=== PATIENT | female | born 1990 | race Caucasian/White ===

== ENCOUNTER 2020-12-12 11:08 | Inpatient (IN) ==
[2020-12-12] MEDS ORDERED: Buffered Lidocaine 1% SYRIN 1 ml INTRADERM ONE (11:23)
[2020-12-12] MEDS ORDERED: Lactated Ringers 1000 ml BAG 1,000 ML IV ONE (11:23)
[2020-12-12] MEDS ORDERED: Lactated Ringers 1000 ml BAG 1,000 ML IV SCH ×2 (12:00→23:00)
[2020-12-12 13:16] LABS: Urine Benzodiazepine Screen None Detected (None Detect); Urine Cannabinoids Screen None Detected (None Detect); Urine Opiates Screen None Detected (None Detect)
[2020-12-12] MEDS ORDERED: Witch Hazel PAD JAR TOPICAL PRN (22:23)
[2020-12-12] MEDS ORDERED: Dibucaine 1% OINT 28.35 GM TUBE PR PRN (22:23)
[2020-12-12] MEDS ORDERED: Oxytocin 10 UNITS/ML 1 ML VIAL IM ONE (22:23)
[2020-12-12] MEDS ORDERED: Lidocaine 1% VIAL 10 MG/ML VIAL ONE (22:31)
[2020-12-13] MEDS ORDERED: Lidocaine 1% VIAL 10 MG/ML VIAL ONE (04:44)
[2020-12-13 08:31] LABS: ABS Monocytes 1.4 10^3/ul (0-0.8); ABS Neutrophils 14.2 10^3/ul (1.5-7.7); Hematocrit 37 % (35-47); Hemoglobin 12.5 g/dL (12.0-16.0); Lymphocyte % 11.4 %; Mean Corpuscular HGB Conc 34 g/dL (31-36); Mean Corpuscular Hemoglobin 32 pg (27-31); Mean Corpuscular Volume 93 fL (80-97); Mean Platelet Volume 8.3 fL (7.4-10.4); Platelet Count 185 10^3/uL (150-450); Red Blood Count 3.94 10^6 /uL (3.70-4.87); Red Cell Distribution Width 14 % (10-15); White Blood Count 17.7 10^3/uL (3.5-10.8)
[2020-12-13 20:08] VITALS: BP 107/60
== END 2020-12-13 22:45 | disposition home or self-care (01) | DRG 807 ==
LOC: MCHOBOUT 11:08 → MCHOB 11:52
PROVIDERS: ADMIT Midwife; ATTEND Midwife